=== PATIENT | male | born 1960 | race Asian ===

== ENCOUNTER 2023-07-10 06:18 | Day surgery (SDC) | payer BC, SELFPAY ==
[2023-07-05 09:33] VITALS: BMI 35.5
[2023-07-05 10:25] LABS: Hematocrit 43.7 % (39.0-52.0); Hemoglobin 14.4 g/dL (13.0-18.0); Mean Platelet Volume 9.2 fL (7.4-10.4); Platelet Count 174 10^3/uL (130-400); Red Blood Cell Count 4.65 10^6/uL (4.70-6.10); Red Cell Dist. Width 12.8 % (11.5-14.5); White Blood Cell Count 4.7 10^3/uL (4.8-10.8)
[2023-07-05 11:22] LABS: Blood Urea Nitrogen 17 mg/dl (9-20); Carbon Dioxide 24 mmol/L (22-30); Chloride 109 mmol/L (98-107); Estimated Creatinine Clearance 89 ml/min; Glucose 92 mg/dl (70-99); Potassium 4.6 mmol/L (3.5-5.1); Sodium 139 mmol/L (135-145); eGFR > 60.00
[2023-07-10] VITALS (10 sets, daily range): BP systolic 113–141; BP diastolic 74–95; BMI 35.5
--- NOTE | 2023-07-10 07:01 | HP.FOC2 ---
Focused History & Physical
Chief Complaint
HPI:
Chief Complaint: Incisional hernia
HPI / Indication for Planned Procedure: Patient is a 62-year-old male who has a substernal incisional hernia status post CABG x 4 in September 2022. Approximately 3 cm hernia recently confirmed on physical examination. Presents today for scheduled
operative correction.
Relevant Past Medical History: Other (A-fib, BILLIE, hypertension, hyperlipidemia, history of V-fib arrest, CAD, STEMI, history of DVT, gout)
Relevant Social History: Negative
Relevant Family History: Negative
Relevant Past Surgical History: Positive for (Uvulectomy/tonsillectomy, septoplasty, CABG x 4, left thoracentesis)
Review of Systems
Review of Pertinent Systems: All Systems Negative
Medication
See Medication form for detailed medications: Yes
Medication List (including Herbals & OTC):
albuterol sulfate 90 mcg/actuation aerosol inhaler (ProAir HFA) 1 inh inhalation Q4H PRN sob 09/14/22
allopurinol 100 mg tablet 100 mg PO DAILY Gout 09/14/22
apixaban 5 mg tablet (Eliquis) 5 mg PO BID Blood Clot Prevention/Tx 09/14/22
atorvastatin 40 mg tablet 40 mg PO QPM Heart Disease/Condition 09/14/22
colchicine 0.6 mg tablet 0.6 mg PO PRN PRN gout flare 09/14/22
melatonin 10 mg tablet 10 mg PO HSPRN PRN sleep 09/14/22
metoprolol tartrate 50 mg tablet 50 mg PO .BID WITH FOOD 09/14/22
multivitamin 1 tab PO DAILY 09/14/22
aspirin 81 mg chewable tablet 81 mg PO DAILY #0 tabs 10/31/22
oxycodone 5 mg tablet 5 mg PO Q6HPRN PRN moderate-severe pain control #28 tabs 10/31/22
amlodipine 2.5 mg tablet 2.5 mg PO BID 07/05/23
flaxseed 1 - 2 ea PO DAILY 07/05/23
fluticasone propionate 50 mcg/actuation nasal spray,suspension (Flonase Allergy Relief) 1 spray intranasal DAILY 07/05/23
furosemide 40 mg tablet 40 mg PO PRN PRN edema 07/05/23
protein 1 ea PO DAILY 07/05/23
Medications Reviewed: Yes
Allergies and Reactions
Patient has Allergies: Yes
Noted Allergies and Reactions:
Allergy/AdvReac Type Severity Reaction Status Date / Time
aspartame Allergy blisters Verified 07/05/23 10:50
or ulcers
in mouth
sulfamethoxazole Allergy Hives Verified 07/05/23 10:50
[From Bactrim]
trimethoprim [From Bactrim] Allergy Hives Verified 07/05/23 10:50
Pertinent Physical Exam
All Other Systems: Negative
Head/Neck: Normal
Lungs: Normal
Heart: Normal
Abdomen: Other (Reducible epigastric incisional hernia)
Extremities: Normal
Neurological: Normal
Diagnosis / Assessment
62-year-old male presenting for scheduled operative correction symptomatic epigastric incisional hernia
Plan / Procedure
Robotic assisted laparoscopic repair incisional hernia with mesh
Anesthesia/Sedation to be done by Anesthesia Provider: Yes
--- NOTE | 2023-07-10 07:15 | W.SUR.PREOP ---
Pre-Operative Surgical Note
-
I have examined this patient prior to the performance of the scheduled procedure.
The patient's condition is unchanged from the time of the current History and
Physical and the patient is able to undergo the scheduled procedure.
[2023-07-10] MEDS: NORMOSOL-R 1000 IV (07:23)
[2023-07-10] MEDS: TYLENOL 1000 MG PO (07:23)
--- NOTE | 2023-07-10 09:26 | W.IMMPOSTOP ---
Addendum entered and electronically signed by Freeman Espino MD 07/10/23 09:36:
#[id number]
Original Note:
Surgical Immed Post Op Note
-
Primary Surgeon: Srinivas
Assisting Surgeon: Gonzalez Tinajero PGY 1
Pre-op Diagnosis: Epigastric incisional hernia
Post-op Diagnosis: Epigastric incisional hernia; 4.5 cm
Procedure Performed: Robotic assisted laparoscopic T JACQUELINE repair epigastric incisional hernia with mesh; Bard soft mesh 15 x 15 cm
Anesthesia Type: GETA +0.25% Marcaine
Specimen / Cultures: None
Estimated Blood Loss: 6 mL
Complications: None immediate
Operative Findings: Epigastric incisional hernia at chest tube site. Fascial defects 4.5 cm horizontally about 2 cm in vertical length. Fascial closure with 0 PDS strata fix. Underlay preperitoneal mesh repair, 15 x 15 cm Bard soft mesh fixated
at numerous locations with interrupted 2-0 Vicryl. Preperitoneal flap closed with 2-0 Monocryl STRATAFIX.
[2023-07-10] MEDS: ZOFRAN 4 MG IV (11:34)
== END 2023-07-10 12:30 | disposition home or self-care (01) ==
LOC: SDS 06:18
PROVIDERS: ATTENDING PHYSICIAN Surgery; FAMILY PHYSICIAN Family Medicine; REFERRING PHYSICIAN Internal Medicine Cardiovascular Disease
DX: K43.2 Incisional hernia without obstruction or gangrene (principal)
CPT/HCPCS: 49593; 36415; 80048; 85027; C1781

== ENCOUNTER 2024-02-15 08:17 | Day surgery (SDC) | payer BC, SELFPAY ==
[2024-01-29 13:13] VITALS: BMI 35.1
[2024-01-29 13:50] LABS: % Basophils 1.1 % (0-2); % Eosinophils 3.6 % (0-6); % Immature Granulocytes 0.4 % (0-0.5); % Lymphocytes 13.5 % (20.5-51.1); % Monocytes 8.1 % (1.7-9.3); % Neutrophils 73.3 % (42.2-75.2); Absolute Basophils 0.1 10^3/uL (0-0.2); Absolute Eosinophils 0.2 10^3/uL (0-0.7); Absolute Lymphocytes 0.6 10^3/uL (1.2-3.4); Absolute Monocytes 0.4 10^3/uL (0.1-0.6); Absolute Neutrophils 3.3 10^3/uL (1.4-6.5); Hematocrit 44.6 % (39.0-52.0); Hemoglobin 14.6 g/dL (13.0-18.0); Mean Corp Hgb Conc. 32.7 g/dL (33.0-37.0); Mean Corpuscular Hgb 31.5 pg (27.0-31.0); Mean Corpuscular Volume 96.1 fL (80.0-94.0); Nucleated Red Blood Cells % 0 % (-); Platelet Count 189 10^3/uL (130-400); Red Blood Cell Count 4.64 10^6/uL (4.70-6.10); Red Cell Dist. Width 12.5 % (11.5-14.5); White Blood Cell Count 4.5 10^3/uL (4.8-10.8)
[2024-01-29 13:55] LABS: PT 15.5 Sec (11.4-14.6)
[2024-01-29 14:02] LABS: ALT (SGPT) 63 U/L (0-50); AST (SGOT) 52 U/L (17-59); Albumin 4.3 g/dl (3.5-5.0); Alkaline Phosphatase 84 U/L (38-126); Blood Urea Nitrogen 23 mg/dl (9-20); Calcium 9.1 mg/dl (8.4-10.2); Carbon Dioxide 30 mmol/L (22-30); Chloride 106 mmol/L (98-107); Estimated Creatinine Clearance 90 ml/min; Glucose 99 mg/dl (70-99); Magnesium 2.3 mg/dl (1.6-2.3); Potassium 4.6 mmol/L (3.5-5.1); Sodium 143 mmol/L (135-145); Total Bilirubin 1.4 mg/dl (0.2-1.3); Total Protein 6.8 g/dl (6.3-8.2); eGFR > 60.00
[2024-02-15] VITALS (27 sets, daily range): BP systolic 109–153; BP diastolic 74–95; BMI 33.4
[2024-02-15 11:26] LABS: ACT-LR - POC 345 Seconds (116-155)
[2024-02-15 11:50] LABS: ACT-LR - POC 353 Seconds (116-155)
--- NOTE | 2024-02-15 12:21 | ITS.CL.ABL ---
Horser Up - Ablation
Ablation
Procedure Report:
ELECTROPHYSIOLOGY ABLATION STUDY
DATE:: February 15, 2024�����������������������������REFERRING: Dr. Anil Parker
INDICATION: Longstanding persistent supraventricular tachycardia in the form of atrial fibrillation.��Prior four-vessel CABG�maze�REDD clip 50 mm with recurrent atrial fibrillation
HISTORY: See H and P.��As above
ANTIARRHYTHMIC DRUG: Suggest class I class or antiarrhythmic drug therapy and the patient opted for pulmonary vein isolation
PRE-PROCEDURE GIULIANA: On intracardiac ultrasound the left atrial appendage was completely closed with a 50 mm AtriClip with Doppler interrogation of the left atrial pended without any flow seen from the left atrial appendage proper through the clip
into the left atrium.
PRESENTING RHYTHM: Atrial fibrillation
'TIME-OUT':��called and confirmed.
SEDATION/ANESTHESIA:��provided via the anesthesia department using general anesthesia (LMA).
INTRAVENOUS/ARTERIAL ACCESS:
Right femoral venous - 10 Fr,
Left femoral venous - 8 Fr, 6 Fr
[id number] vascular closure utilized
Ultrasound guidance for bilateral femoral vein access was utilized by me to obtain access with demonstration of normal anatomy
CHADS-VASC Score:
HAS-Bled Score
PROCEDURE:
1.��A decapolar CS catheter was placed within the CS for mapping and pacing.��This was also used as the reference catheter for the 3-D map. The left atrium and the right atrium are noted to be severely dilated on intracardiac ultrasound.
2. The intracardiac ultrasound catheter was positioned in the RA to identify the FO for targeting of transseptal puncture, assist��in identification of the pulmonary vein ostia, monitoring pre and post ablation pulmonary vein flow velocities,
monitoring for 'bubble' formation during RF application as a sign of thermal injury,��and to monitor for pericardial effusion during mapping and ablation procedure.���Left atrial size, LV ejection fraction, and pulmonary vein flows were monitored
pre and post ablation procedure. The other valves were inspected and found to be free of significant regurgitation or stenosis.
3.��Half of the calculated heparin bolus was administered prior to the first transeptal puncture.��Transseptal puncture was performed to diagnose RA and LA pressure so that safety of LA mapping and ablation could be further assessed, and to access
the left atrium and pulmonary veins for mapping and ablation.��This entailed advancing an 16.8 Romansh sheath RF wire with dilator apparatus into the superior vena cava and withdrawing both (monitoring intracardiac ultrasound, fluoroscopy and tip
pressure) with the tip oriented toward the atrial septum.��The fossa ovalis was engaged (indicated by sudden displacement of the sheath tip as well as tenting of the fossa seen on intracardiac ultrasound).��Left atrial access required a pass with
the Brockenbrough needle extended.��Left atrial catheter position was confirmed by pressure monitoring (RA mean pressure 8 mm Hg and LA mean presure 14 mm Hg), LA saturation (99%),��as well as fluoroscopy.��The sheath was advanced over the dilator
and positioned in the left atrium.����The remainder of the calculated heparin bolus was administered and heparin was
infused to maintain ACT at 300 -350 seconds throughout the case.
4.��RA pacing was performed via the proximal decapolar poles and LA pacing was performed via the distal decapolar poles.
5. A quadrapolar catheter was first positioned at the His position for His Bundle recording which was tagged via the 3-D Navex sytem, and then passed to the RVA for RV pacing and recording.
6. The multipolar catheter and the PFA grid were placed in each of the LIPV, LSPV, RSPV and the RIPV.��
7.��Next, a 3-D map was created using Navex.���A 3-D reconstructed CT image was compared to the 3-D Navex map to assist in anatomic interpretation, mapping and ablation.��The CT image and the NavX image were fused.
8. A total of 80 lesions were given to the pulmonary veins and the left atrial posterior wall as defined below. Each of the 4 pulmonary veins were connected. The left superior pulm vein was connected circumferentially. The left inferior
pulmonary vein was connected at the posterior thalia. The right superior pulmonary vein was connected circumferentially and the right inferior pulmonary was connected on the posterior thalia. The posterior wall had areas of scar from the prior
Maze procedure in the inferoseptal floor and patchy areas along the roof. The pulmonary veins were isolated in all of and basket pose and the flower pose was utilized for the roof posterior wall proper floor inferoseptum and anteroseptum.
Additional lesions were given after the initial pass at the posterior thalia of the right pulmonary veins and flower pose. Multipolar catheter confirmed entrance and exit block in all 4 pulmonary veins and the posterior wall as well as the
interatrial septum, floor and roof of the left atrium. EP study post cardioversion demonstrated with inducible tachyarrhythmias.
9. Normal sinus node and AV rowena function noted.
TOTAL FLOURO TIME: 15.6 minutes
TOTAL RF DURATION: 0 minutes
REVERSAL OF HEPARIN: 40 mg of protamine, slow IV administration
COMPLICATIONS:
None
Intracardiac US shows no pericardial effusion post ablation.
SUMMARY:��
Complex left atrial mapping and ablation.
Pulmonary vein isolation of all 4 pulmonary veins as well as the roof posterior wall and floor of the left atrium.
RECOMMENDATIONS:
1. Ambulate in 4 hours
2. Resume anticoagulation
3.��With any clinical recurrence would discussed a class III antiarrhythmic drug either with sotalol or dofetilide
4.� As above
Copy to: Dr. Pratik Patel
--- NOTE | 2024-02-15 14:53 | PTCARENOTE ---
Pt states he has a small cut inside the lower right gums he noticed while eating. Pt and pt's family asking if there is any medication that can be put on it. Dr Smart and Peace Carreon TEST SPECIALIST made aware. Dr Smart states there is no treatment at this
time. Will continue to monitor.
--- NOTE | 2024-02-15 16:40 | W.PN.UPDATE ---
Update Note
Progress Note Update
63 yo male s/p PVI (Same day). He denies cp, sob, shawna diet, R inner mouth laceration most likely from intubation sore, ok to take tylenol as needed, EKG SR, b/l groins c/d/i, soft. He will resume Eliquis tonight at home. ACtivity restrictions
reviewed. He will f/u Dr. Michael in 2 mo. He is for d/c home after 5pm if groins stable and voiding.
SUMMARY:��
Complex left atrial mapping and ablation.
Pulmonary vein isolation of all 4 pulmonary veins as well as the roof posterior wall and floor of the left atrium.
RECOMMENDATIONS:
1. Ambulate in 4 hours
2. Resume anticoagulation
3.��With any clinical recurrence would discussed a class III antiarrhythmic drug either with sotalol or dofetilide
4.� As above
--- NOTE | 2024-02-15 17:00 | PTCARENOTE ---
Pt ambulated to bathroom without difficulty. After returning to the bed, right groin noted to have oozing noted. Manual pressure held x 10 mintues. Hemostasis obtained. Dressing removed. No further oozing noted. Dry, sterile 4x4 and tegaderm
applied. Mary Jo Carreon NP made aware. Pt to lay flat x 15 minutes, sit up for 15 minutes, and then walk around recovery room. If pt has no further oozing noted, Mary Jo Carreon NP states pt will be ok for discharge. Will continue to monitor.
--- NOTE | 2024-02-15 17:41 | PTCARENOTE ---
Pt voided in bathroom and ambulated two laps around recovery room without difficulty. Pt with no further oozing noted. No bleeding or hematoma noted. Pt's family at pt bedside. Pt ok for discharge.
== END 2024-02-15 17:50 | disposition home or self-care (01) ==
LOC: CATH 08:17
PROVIDERS: ATTENDING PHYSICIAN Internal Medicine Cardiovascular Disease; FAMILY PHYSICIAN Family Medicine; OTHER PHYSICIAN Internal Medicine Cardiovascular Disease
DX: I48.19 Other persistent atrial fibrillation (principal); Z95.1 Presence of aortocoronary bypass graft; I47.10 Supraventricular tachycardia, unspecified; I25.2 Old myocardial infarction; M10.9 Gout, unspecified; Z79.01 Long term (current) use of anticoagulants; Z79.899 Other long term (current) drug therapy; I10 Essential (primary) hypertension; E78.5 Hyperlipidemia, unspecified; Z95.5 Presence of coronary angioplasty implant and graft; Z86.74 Personal history of sudden cardiac arrest; R00.1 Bradycardia, unspecified; I07.1 Rheumatic tricuspid insufficiency; Q21.12 Patent foramen ovale; Z86.718 Personal history of other venous thrombosis and embolism; G47.33 Obstructive sleep apnea (adult) (pediatric); J90 Pleural effusion, not elsewhere classified; N20.0 Calculus of kidney; G89.29 Other chronic pain; G47.00 Insomnia, unspecified; D72.819 Decreased white blood cell count, unspecified; R74.01 Elevation of levels of liver transaminase levels; E66.9 Obesity, unspecified; Z95.818 Presence of other cardiac implants and grafts; Z68.35 Body mass index [BMI] 35.0-35.9, adult; Z79.82 Long term (current) use of aspirin
CPT/HCPCS: C1732; C1894; C1769; C1766; C1892; C1759; 36415; 75572; 80053; 83735; 85025; 85347; 85610; 86850; 86900; 86901; 93005; 93656; 93657; C1730; C1733; Q9967